=== PATIENT | male | born 1995 | race Native Hawaiian/Other Pacific Islander ===

== ENCOUNTER 2021-10-27 07:36 | Outpatient (CLI) | payer OTHER ==
--- NOTE | 2021-10-27 16:42 | MRI Report ---
PROCEDURE: Knee RT W/O INDICATIONS: KNEE PAIN TECHNIQUE: Noncontrast sagittal PD fast spin echo and T2 fast spin echo with fat saturation, sagittal 3-D gradie nt sequence with fat saturation; coronal T1 spin echo and PD fast spin echo with fat saturation, and axial PD fast spin echo with fat saturation through the knee. COMPARISON: None. FINDINGS: Image quality: Excellent. Menisci: The medial and lateral menisci demonstrate normal morphology and internal signal. The meni scal root ligaments appear intact. Cruciate ligaments: The anterior and posterior cruciate ligaments are intact. Medial structures: The medial collateral ligament appears intact. The posterior oblique ligament, s emimembranosus tendon insertions, and oblique popliteal ligament, and meniscocapsular junction appear intact. Visualized portions of the pes anserinus tendons appear normal. No abnormal bursal fluid. Lateral structures: The lateral collateral ligament, long and short heads of the biceps femoris tend on appear intact. The popliteus tendon appears normal; the popliteofibular ligament appears intact. The posterosuperior and anteroinferior popliteomeniscal fascicles appear intact. The arcuate and fa bellofibular ligaments appear intact, around the lateral inferior geniculate artery. Iliotibial band appears normal. Anterior structures: Mild tendinosis involving distal quadriceps tendon at its insertion on superior patella is seen. Mild proximal patella tendinosis at its inferior patella insertion is also noted. Pa tellar alignment is normal. No femoral trochlear dysplasia or ventral trochlear prominence. No rosanna a in the infrapatellar fat pad. Bones and cartilage: No bone marrow contusions or fractures. The cartilage of the medial and latera l femorotibial compartments, as well as the patellofemoral compartment, appears normal in thickness. Joint space: There is physiologic knee joint fluid. No Berger's cyst. Normal appearing synovial pli are incidentally noted. IMPRESSION: 1. Mild distal quadriceps and proximal patella tendinosis. No tendon rupture. 2. Cruciate ligaments are intact. 3. No evidence of focal meniscal tear. 4. No marrow edema. No fracture or dislocation. Articulating cartilages are intact. Reviewed by: Gregory Matamoros MD on 10/27/2021 4:40 PM PDT Approved by: Gregory Matamoros MD on 10/27/2021 4:40 PM PDT Station ID: [id number]
== END 2021-10-27 07:37 | disposition home or self-care (01) ==
LOC: DI 07:36
PROVIDERS: ATTEND Physician Assistant
DX: M67.863 Other specified disorders of tendon, right knee (principal)

== ENCOUNTER 2021-12-01 11:15 | Outpatient (CLI) | payer OTHER ==
--- NOTE | 2021-12-01 18:25 | XRAY Report ---
PROCEDURE: Knee 4 View RT INDICATIONS: KNEE PAIN TECHNIQUE: 4 views of the right knee(s) were acquired. COMPARISON: None. FINDINGS: Bones: No fractures or dislocations. No suspicious bony lesions. Soft tissues: No joint effusion. No suspicious soft tissue calcifications. IMPRESSION: Right knee without acute fracture or malalignment. No significant degenerative changes s een. Reviewed by: Gustavo Wilson MD on 12/01/2021 6:24 PM PDT Approved by: Gustavo Wilson MD on 12/01/2021 6:24 PM PDT Station ID: [id number]
== END 2021-12-01 23:59 | disposition home or self-care (01) ==
LOC: DI.WOS 11:15
PROVIDERS: ATTEND Physician Assistant
DX: M25.561 Pain in right knee (principal)